=== PATIENT | female | born 1935 | race Caucasian/White ===

== ENCOUNTER 2018-04-14 13:15 | Observation (INO) ==
[2018-04-14 14:51] LABS: Apearance,Urine CLOUDY (Clear); Bacteria,Urine Many /HPF (Few); Bilirubin,Urine Negative (Negative); Blood, Urine Moderate mg/dL (Negative); Glucose,Urine (UA) Negative (Negative); Ketones,Urine Negative (Negative); Nitrite,Urine Positive (Negative); Protein,Urine 100 MG/DL; RBC,Urine 70 /HPF (0-4); Squamous Epithelial Cell,Urine Occasional /HPF (0-10); Urine Specific Gravity 1.016 (1.001-1.035); WBC,Urine 578 /HPF (0-6)
[2018-04-14 14:54] LABS: Urine Color Yellow (Yellow)
[2018-04-14 15:26] LABS: Basophils # 0.1 10*3/uL (0.0-0.2); Basophils % 0.3 % (0.0-0.8); Eosinophils # 0.1 10*3/uL (0.0-0.87); Eosinophils % 0.5 % (0.00-10.9); Hematocrit 33.1 VOL% (35.7-47.0); Hemoglobin 10.1 GM/DL (12.0-16.0); Immature Granulocytes % 1.2 %; Lymphocytes # 1.8 10*3/uL (1.4-4.0); Lymphocytes % 10.4 % (21.3-54.2); Mean Corpuscular HGB Conc 30.5 GM/DL (32-36); Mean Corpuscular Hemoglobin 30 PG (27-34); Mean Corpuscular Volume 97.1 FL (87-102); Mean Platelet Volume 11.1 FL (9.6-12.0); Monocytes # 1.3 10*3/uL (0.11-0.8); Monocytes % 7.6 % (1.7-12.7); Neutrophils # 13.7 10*3/uL (1.4-7.4); Platelet Count 174 T/CUMM (130-400); Red Blood Count 3.41 MC/CUMM (3.8-5.5); Red Cell Distribution Width 14.8 % (9.3-17.3); White Blood Count 17.1 T/CUMM (4-12)
[2018-04-14 15:30] LABS: ABG Base Excess 3.2 MMOL/L (-2.5-2.5); ABG HCO3 28.3 MMOL/L (20-26); ABG Oxygen Saturation 96.1 % (95-100); ABG PCO2 44.5 MM HG (35-48); ABG PH 7.421 (7.35-7.45); ABG PO2 84.8 MM HG (80-95); ABG TCO2 29.6 MMOL/L (23-27)
[2018-04-14] MEDS ORDERED: LEVOFLOXACIN INJ 500 MG in PREMIX 1 EACH IV STA (15:38)
[2018-04-14 15:57] LABS: Bilirubin,Total 0.5 MG/DL (0.2-1.0); Calcium 8.3 MG/DL (8.5-10.1); Osmolality,Calculated 287.5 MOS/KG (273-304); Potassium 5.9 MMOL/L (3.5-5.1); Thyroid Stimulating Hormone 0.559 uIU/ml (0.358-3.74); Total Protein 7.3 G/DL (6.4-8.3)
[2018-04-14] MEDS ORDERED: DEXTROSE 50% 25 GM/50 ML VIAL IV PRN (16:25)
[2018-04-14] MEDS ORDERED: GLUCAGON 1 MG VIAL IM PRN (16:25)
[2018-04-14] MEDS ORDERED: ONDANSETRON 4 MG/2 ML VIAL IV PRN (16:25)
[2018-04-14] MEDS ORDERED: ACETAMINOPHEN 325 MG TABLET PO PRN (16:25)
[2018-04-14] MEDS ORDERED: guaiFENesin 200 MG/10 ML UDCUP PO PRN (16:29)
[2018-04-14] MEDS ORDERED: PROMETHAZINE 25 MG TABLET PO PRN (16:29)
[2018-04-14] MEDS ORDERED: SIMETHICONE CHEW 80 MG TABLET PO PRN (16:29)
[2018-04-14] MEDS ORDERED: POLYVINYL ALCOHOL 1.4% OPH SOLN 15 ML BOTTLE BOTH EYES PRN (16:29)
[2018-04-14] MEDS ORDERED: DEXTROSE 50% 25 GM/50 ML SYRINGE IV ONE ×2 (16:45→17:19)
[2018-04-14] MEDS ORDERED: SODIUM BICARBONATE 50 MEQ/50 ML SYRINGE IV STA (16:45)
[2018-04-14] MEDS ORDERED: INSULIN REGULAR 100 UNIT/ML IV STA (16:45)
[2018-04-14] MEDS ORDERED: SODIUM POLYSTYRENE SULFATE 15 GM/60 ML BOTTLE PO STA (16:46)
[2018-04-14] MEDS: INSULIN REGULAR 100 UNIT/ML SUBCUT SCH (17:03)
[2018-04-14] MEDS: SODIUM CHLORIDE 0.9% 1,000 ML IV SCH (18:12)
[2018-04-14] MEDS ORDERED: OLANZapine 2.5 MG TABLET PO SCH (21:00)
[2018-04-14] MEDS ORDERED: INSULIN GLARGINE 100 UNIT/ML SUBCUT SCH (21:00)
[2018-04-14] MEDS ORDERED: clonazePAM 0.5 MG TABLET PO SCH (21:00)
[2018-04-14] MEDS: BENZONATATE 100 MG CAPSULE PO SCH (21:16)
[2018-04-14] MEDS: MEMANTINE 10 MG TABLET PO SCH (21:16)
[2018-04-14] MEDS: ERTAPENEM 1,000 MG in SODIUM CHLORIDE 0.9% 100 ML IV SCH (21:20)
[2018-04-14] MEDS: ZINC OXIDE PASTE 113 GM TUBE TOP SCH (21:21)
[2018-04-15] MEDS: INSULIN REGULAR 100 UNIT/ML SUBCUT SCH ×3 (01:17→12:37)
[2018-04-15] MEDS: SODIUM CHLORIDE 0.9% 1,000 ML IV SCH ×2 (04:54→11:03)
[2018-04-15 05:02] LABS: Basophils % 0.2 % (0.0-0.8); Eosinophils # 0.3 10*3/uL (0.0-0.87); Eosinophils % 2.4 % (0.00-10.9); Hematocrit 35.1 VOL% (35.7-47.0); Hemoglobin 10.6 GM/DL (12.0-16.0); Immature Granulocytes % 0.6 %; Immature Granulocytes Absolute 0.07 #; Lymphocytes # 1.1 10*3/uL (1.4-4.0); Lymphocytes % 9.1 % (21.3-54.2); Mean Corpuscular HGB Conc 30.2 GM/DL (32-36); Mean Corpuscular Hemoglobin 29 PG (27-34); Mean Corpuscular Volume 96.7 FL (87-102); Mean Platelet Volume 10.9 FL (9.6-12.0); Monocytes # 0.7 10*3/uL (0.11-0.8); Neutrophils # 9.9 10*3/uL (1.4-7.4); Neutrophils % 81.7 % (38.7-73.9); Platelet Count 158 T/CUMM (130-400); Red Blood Count 3.63 MC/CUMM (3.8-5.5); Red Cell Distribution Width 14.8 % (9.3-17.3); White Blood Count 12.1 T/CUMM (4-12)
[2018-04-15 05:28] LABS: Calcium 7.7 MG/DL (8.5-10.1); Osmolality,Calculated 292.8 MOS/KG (273-304); Potassium 4.1 MMOL/L (3.5-5.1)
[2018-04-15] MEDS ORDERED: INSULIN NPH/REGULAR 70/30 100 UNIT/ML SUBCUT SCH ×2 (06:00→07:30)
[2018-04-15] MEDS ORDERED: FERROUS SULFATE 325 MG TABLET PO SCH (09:00)
[2018-04-15] MEDS ORDERED: FAMOTIDINE 20 MG TABLET PO SCH (09:00)
[2018-04-15] MEDS ORDERED: SERTRALINE 50 MG TABLET PO SCH (09:00)
[2018-04-15] MEDS ORDERED: ASPIRIN EC 81 MG TABLET PO SCH (09:00)
[2018-04-15] MEDS ORDERED: FOLIC ACID 1 MG TABLET PO SCH (09:00)
[2018-04-15] MEDS ORDERED: DILTIAZEM CD 180 MG CAPSULE PO SCH (09:00)
[2018-04-15] MEDS ORDERED: DOCUSATE SODIUM 100 MG CAPSULE PO SCH (09:00)
[2018-04-15] MEDS ORDERED: CALCIUM (CARBONATE) 500 MG TABLET PO SCH (09:00)
[2018-04-15] MEDS ORDERED: ATORVASTATIN 40 MG TABLET PO SCH (09:30)
[2018-04-15 10:35] LABS: ABG Base Excess 5.5 MMOL/L (-2.5-2.5); ABG HCO3 30.3 MMOL/L (20-26); ABG Oxygen Saturation 88.8 % (95-100); ABG PCO2 45.5 MM HG (35-48); ABG PH 7.442 (7.35-7.45); ABG PO2 56.7 MM HG (80-95); ABG TCO2 31.7 MMOL/L (23-27)
[2018-04-15] MEDS ORDERED: LEVOFLOXACIN 500 MG TABLET PO SCH (12:00)
[2018-04-15] MEDS: ERTAPENEM 1,000 MG in SODIUM CHLORIDE 0.9% 100 ML IV SCH (12:02)
[2018-04-15] MEDS: BENZONATATE 100 MG CAPSULE PO SCH (12:03)
[2018-04-15] MEDS: MEMANTINE 10 MG TABLET PO SCH (12:03)
[2018-04-15] MEDS: ZINC OXIDE PASTE 113 GM TUBE TOP SCH (12:04)
[2018-04-15 13:50] VITALS: BP 139/56
[2018-04-17] MEDS ORDERED: fentaNYL 12 MCG/HR PATCH TRANSDERM SCH (09:00)
[2018-04-21] MEDS ORDERED: ERGOCALCIFEROL 50,000 UNIT CAPSULE PO SCH (09:00)
== END 2018-04-15 15:07 ==
LOC: EDUNIT# → N.EDINP 13:15 → N.ED 13:15 → N.5E 17:29
PROVIDERS: ADMIT Hospitalist; ATTEND Hospitalist

== ENCOUNTER 2020-01-31 08:19 | Inpatient (IN) ==
[2020-01-31] MEDS ORDERED: ONDANSETRON 4 MG/2 ML VIAL IV PRN (10:09)
[2020-01-31] MEDS ORDERED: GLUCAGON 1 MG VIAL IM PRN (10:09)
[2020-01-31] MEDS ORDERED: ACETAMINOPHEN 325 MG TABLET PO PRN (10:09)
[2020-01-31] MEDS ORDERED: MORPHINE 4 MG/1 ML VIAL IV PRN (10:09)
[2020-01-31] MEDS ORDERED: DEXTROSE 50% 25 GM/50 ML VIAL IV PRN (10:09)
[2020-01-31] MEDS ORDERED: PROMETHAZINE 25 MG TABLET PO PRN (10:14)
[2020-01-31] MEDS ORDERED: guaiFENesin 200 MG/10 ML UDCUP PO PRN (10:14)
[2020-01-31] MEDS ORDERED: TRIAMCINOLONE 0.1% CREAM 15 GM TUBE TOP PRN (10:14)
[2020-01-31] MEDS ORDERED: MAGNESIUM HYDROXIDE SUSP 30 ML UDCUP PO PRN (10:14)
[2020-01-31] MEDS: INSULIN REGULAR 100 UNIT/ML SUBCUT SCH ×3 (11:30→22:40)
[2020-01-31 12:12] LABS: Basophils % 0.3 % (0.0-0.8); Eosinophils % 0.3 % (0.00-10.9); Hematocrit 35.7 VOL% (35.7-47.0); Hemoglobin 11.4 GM/DL (12.0-16.0); Immature Granulocytes % 0.7 %; Immature Granulocytes Absolute 0.09 #; Lymphocytes # 1.1 10*3/uL (1.4-4.0); Mean Corpuscular HGB Conc 31.9 GM/DL (32-36); Mean Corpuscular Volume 93.9 FL (87-102); Monocytes % 6.3 % (1.7-12.7); Neutrophils % 84.4 % (38.7-73.9); Platelet Count 205 T/CUMM (130-400); Red Cell Distribution Width 13.6 % (9.3-17.3); White Blood Count 13.7 T/CUMM (4-12)
[2020-01-31 13:24] LABS: Albumin 2.9 G/DL (3.4-5.0); Bilirubin,Total 0.4 MG/DL (0.2-1.0); Calcium 8.7 MG/DL (8.5-10.1); Osmolality,Calculated 286.4 MOS/KG (273-304); Risk Ratio 3.5; Thyroid Stimulating Hormone 2.76 uIU/ml (0.358-3.74); Total Protein 7.6 G/DL (6.4-8.3); VLDL CHOLESTEROL 27.6 MG/DL
[2020-01-31] MEDS: SODIUM CHLORIDE 0.9% 1,000 ML IV SCH (13:58)
[2020-01-31] MEDS: ENOXAPARIN 40 MG/0.4 ML SYRINGE SUBCUT SCH (14:44)
[2020-01-31] MEDS: [UNRECOGNIZED DRUG - OTHER] TOP SCH (22:53)
[2020-01-31] MEDS: OLANZapine 2.5 MG TABLET PO SCH (22:55)
[2020-01-31] MEDS: INSULIN GLARGINE 100 UNIT/ML SUBCUT SCH (22:55)
[2020-02-01 05:35] LABS: Basophils % 0.3 % (0.0-0.8); Eosinophils % 0.1 % (0.00-10.9); Hematocrit 30.5 VOL% (35.7-47.0); Hemoglobin 9.5 GM/DL (12.0-16.0); Immature Granulocytes % 0.4 %; Immature Granulocytes Absolute 0.04 #; Lymphocytes # 1.2 10*3/uL (1.4-4.0); Lymphocytes % 13.2 % (21.3-54.2); Mean Corpuscular HGB Conc 31.1 GM/DL (32-36); Mean Corpuscular Volume 96.2 FL (87-102); Mean Platelet Volume 11.3 FL (9.6-12.0); Monocytes % 9.9 % (1.7-12.7); Neutrophils % 76.1 % (38.7-73.9); Platelet Count 191 T/CUMM (130-400); Red Blood Count 3.17 MC/CUMM (3.8-5.5); Red Cell Distribution Width 13.9 % (9.3-17.3); White Blood Count 9.4 T/CUMM (4-12)
[2020-02-01 05:53] LABS: Calcium 7.8 MG/DL (8.5-10.1); Osmolality,Calculated 288.5 MOS/KG (273-304)
[2020-02-01] MEDS: INSULIN REGULAR 100 UNIT/ML SUBCUT SCH ×4 (07:30→21:54)
[2020-02-01] MEDS ORDERED: POTASSIUM CHLORIDE 10 MEQ TABLET PO SCH (09:00)
[2020-02-01] MEDS: SODIUM CHLORIDE 0.9% 1,000 ML IV SCH (10:10)
[2020-02-01] MEDS ORDERED: DEXTROSE 50% 25 GM/50 ML VIAL IV PRN (10:41)
[2020-02-01] MEDS ORDERED: GLUCAGON 1 MG VIAL IM PRN (10:41)
[2020-02-01] MEDS: DILTIAZEM CD 180 MG CAPSULE PO SCH (11:30)
[2020-02-01] MEDS: FERROUS SULFATE 325 MG TABLET PO SCH (11:30)
[2020-02-01] MEDS: FAMOTIDINE 20 MG TABLET PO SCH (11:31)
[2020-02-01] MEDS: PANTOPRAZOLE 40 MG TABLET PO SCH (11:31)
[2020-02-01] MEDS: SERTRALINE 25 MG TABLET PO SCH (11:31)
[2020-02-01] MEDS: FOLIC ACID 1 MG TABLET PO SCH (11:33)
[2020-02-01] MEDS: ENOXAPARIN 40 MG/0.4 ML SYRINGE SUBCUT SCH (11:33)
[2020-02-01] MEDS: [UNRECOGNIZED DRUG - OTHER] TOP SCH (21:10)
[2020-02-01] MEDS: OLANZapine 2.5 MG TABLET PO SCH (21:53)
[2020-02-01] MEDS: INSULIN GLARGINE 100 UNIT/ML SUBCUT SCH (21:53)
[2020-02-02] MEDS: SODIUM CHLORIDE 0.9% 1,000 ML IV SCH (03:58)
[2020-02-02] MEDS: INSULIN REGULAR 100 UNIT/ML SUBCUT SCH ×2 (08:18→12:39)
[2020-02-02] MEDS ORDERED: METHOTREXATE 2.5 MG TABLET PO SCH (09:00)
[2020-02-02] MEDS: DILTIAZEM CD 180 MG CAPSULE PO SCH (10:15)
[2020-02-02] MEDS: FAMOTIDINE 20 MG TABLET PO SCH (10:16)
[2020-02-02] MEDS: PANTOPRAZOLE 40 MG TABLET PO SCH (10:16)
[2020-02-02] MEDS: SERTRALINE 25 MG TABLET PO SCH (10:16)
[2020-02-02] MEDS: FERROUS SULFATE 325 MG TABLET PO SCH (10:16)
[2020-02-02] MEDS: FOLIC ACID 1 MG TABLET PO SCH (10:17)
[2020-02-02] MEDS: ENOXAPARIN 40 MG/0.4 ML SYRINGE SUBCUT SCH (12:38)
[2020-02-02 15:05] VITALS: BP 130/46
[2020-02-03] MEDS ORDERED: fentaNYL 12 MCG/HR PATCH TRANSDERM SCH (09:00)
== END 2020-02-02 15:22 | disposition home or self-care (01) | DRG 563 ==
LOC: EDUNIT# → EDBD → N.ED 08:19 → SUATTDRO 10:09 → N.EDINP 10:09 → N.3E 12:05
PROVIDERS: ADMIT Internal Medicine; ATTEND Internal Medicine